=== PATIENT | male | born 1985 | race Caucasian/White ===

== ENCOUNTER 2016-03-07 11:15 | Inpatient (IN) | payer MEDICAID ==
[~2016-03-07] VITALS: Ht 175.3 cm; Wt 56.7 kg
[~2016-03-07 11:15] MED LIST: CREON (PANCRELI1 CAP PO; FLUTICASONE PRO16 GM NASAL; MULTIPLE VITAMI1 TA1 PO; PROAIR HFA8.5 GM INH; PULMOZYME1 MG/ML INH; ZANTAC150 MG PO; [UNRECOGNIZED DRUG - OTHER] INH
[2016-03-07 12:53] LABS: BASOPHILS 0.1 % (0.0-2.0); EOSINOPHILS 0.1 % (0-7); HEMATOCRIT 42.1 % (42.0-54.0); HEMOGLOBIN 14.3 g/dL (13.5-17.5); IMMATURE GRANULOCYTES 0.3 % (0-5); LYMPHOCYTES 4.9 % (15-50); MCH 28.2 pg (26.0-34.0); MEAN PLATELET VOLUME 8.8 fL (7.4-10.4); MONOCYTES 9.5 % (2-11); NEUTROPHILS 85.1 % (40-80); RBC 5.07 10x6/uL (4.20-6.10); RDW 13.6 % (11.5-14.5); WBC 14.9 10x3/uL (4.8-10.8)
[2016-03-07 13:16] LABS: CALC OSMOLALITY 266 mosm/kg (275-300); CALCIUM 9.3 mg/dL (8.5-10.1); CARBON DIOXIDE 25.9 mmol/L (21.0-32.0); CHLORIDE - SERUM 98 mmol/L (98-107); GLUCOSE 97 mg/dL (74-106); POTASSIUM - SERUM 4.3 mmol/L (3.5-5.1); SODIUM 134 mmol/L (136-145); UREA NITROGEN 9 mg/dL (7-18); eGFR NON AFRICAN AMERICAN > 90 mL/min (90-120)
[2016-03-07 13:19] LABS: APTT 35.7 SECONDS (22.8-39.4); INR 1.47 (0.85-1.17); PROTIME 17.7 SECONDS (11.6-15.0)
[2016-03-07 13:25] LABS: PLATELET COUNT 443 10x3/uL (130-400)
--- NOTE | 2016-03-07 15:50 | NUR ---
A 29 YEAR OLD ADMITTED TO ROOM 2227 VIA W/C AT PRESENT PLAN OF CARE GONE OVER WITH PT DEMONSTRATES UNDERSTANDING SL PATENT IN RT WRIST AT PRESENT DRY HACKING NON-PRODUCTIVE COUGH NOTED.
[2016-03-07 15:57] VITALS: BP 95/49
--- NOTE | 2016-03-07 16:00 | NUR ---
SLEEPING QUIETLY AT PRESENT DENIES ANY NEEDS AT PRESENT.
[2016-03-07 16:44] VITALS: BP 95/49; BMI 18.5
--- NOTE | 2016-03-07 18:13 | NUR ---
STATUS REMAINS UNCHGD AT PRESENT DENIES ANY NEEDS AT THIS TIME.
--- NOTE | 2016-03-07 18:14 | NUR ---
VS NEW ORDERS R/N AT PRESENT.
[2016-03-07 19:00] VITALS: BP 110/68
[2016-03-08] VITALS: BP 88/51
[2016-03-08 04:00] VITALS: BP 102/59
--- NOTE | 2016-03-08 04:12 | NUR ---
PT ADDMITTED WITH PNEUMONIA. SLEEPING AT THIS TIME. RESP EASY, UNLABORED. NO DISTRESS NOTED.
[2016-03-08 05:36] LABS: BASOPHILS 0.1 % (0.0-2.0); EOSINOPHILS 0.2 % (0-7); HEMATOCRIT 35.8 % (42.0-54.0); HEMOGLOBIN 12.1 g/dL (13.5-17.5); IMMATURE GRANULOCYTES 0.3 % (0-5); LYMPHOCYTES 6.8 % (15-50); MCH 27.8 pg (26.0-34.0); MCHC 33.8 g/dL (31.0-37.0); MCV 82.3 fL (80.0-100.0); MEAN PLATELET VOLUME 9.2 fL (7.4-10.4); MONOCYTES 12.4 % (2-11); NEUTROPHILS 80.2 % (40-80); PLATELET COUNT 434 10x3/uL (130-400); RBC 4.35 10x6/uL (4.20-6.10); RDW 13.8 % (11.5-14.5); WBC 15.3 10x3/uL (4.8-10.8)
[2016-03-08 06:17] LABS: ALKALINE PHOSPHATASE 119 U/L (46-116); ALT (SGPT) 21 U/L (10-68); CALC OSMOLALITY 272 mosm/kg (275-300); CARBON DIOXIDE 24.8 mmol/L (21.0-32.0); CHLORIDE - SERUM 102 mmol/L (98-107); GLUCOSE 106 mg/dL (74-106); MAGNESIUM - SERUM 1.6 mg/dL (1.8-2.4); PHOSPHOROUS 3.5 mg/dL (2.5-4.9); PRE-ALBUMIN 6.7 mg/dL (18.0-35.7); PROTEIN - SERUM 6.6 g/dL (6.4-8.2); SODIUM 137 mmol/L (136-145); UREA NITROGEN 11 mg/dL (7-18); eGFR NON AFRICAN AMERICAN > 90 mL/min (90-120)
--- NOTE | 2016-03-08 07:30 | NUR ---
AWAKE ALERT COLOR ADQ SKIN WARM AND DRY RESP EVEN AND UNLABORED AT PRESENT N/C RESP EVEN AND UNLABORED AT PRESENT.
[2016-03-08 07:41] VITALS: BP 99/51
--- NOTE | 2016-03-08 09:00 | NUR ---
QUIET IN ROOM AT PRESENT DENIES ANY NEEDS AT THIS TIME.
[2016-03-08 09:22] VITALS: Ht 175.3 cm; Wt 56.7 kg
--- NOTE | 2016-03-08 10:32 | NUR ---
PREMA NOTE: CM CALLED [facility] FOR TRANSFER OF PATIENT TODAY. DR. MURDOCK DOING DOC TO DOC AND PHONE NUMBER PROVIDED. PATIENT IS IN AGREEMENT TO THE TRANSFER.
--- NOTE | 2016-03-08 11:00 | NUR ---
LAYING QUIETLY WITH EYES CLOSED AT PRESENT N/C.
[2016-03-08 12:20] VITALS: BP 88/45
--- NOTE | 2016-03-08 12:53 | NUR ---
QUIET IN ROOM EATING LUNCH MARLENE WELL DENIES ANY NEEDS AT THIS TIME.
--- NOTE | 2016-03-08 15:27 | NUR ---
QUIET IN ROOM AT PRESENT N/C AT PRESENT WATCHING TV QUIETLY AT PRESENT.
[2016-03-08 15:51] VITALS: BP 109/63
--- NOTE | 2016-03-08 16:43 | NUR ---
DC REASSESSMENT NOTE: PATIENT HAS BEEN ACCEPTED TO [facility] - WAITING ON BED.
--- NOTE | 2016-03-08 16:48 | NUR ---
Patient Name: PARRIS RUST Admission Status: ER Accout number: [id number] Admission Date: 03-07-2016 : 1985 Admission Diagnosis:PNEUMONIA, UNSPECIFIED ORGANISM Attending: ABIEL Current LOS: 1 Anticipated DC Date: Planned Disposition: [place] Insurance: [place] [employer] [facility] Discharge Planning Comments: CM SPOKE WITH PATIENT AND (SEAMUS) REGARDING TRANSFER TO [facility]. PATIENT IS INDEPENDENT WITH HIS CARE AT HOME AND HAS 3 STEPS W/RAILS TO ENTER HOME AND NO STAIRS INSIDE. PATIENT SEES A DOCTOR AT [place] BUT COULD NOT REMEMBER NAME. PATIENT USES [facility] ON [address].PATIENT HAS A NEBULIZER AT HOME. CM WILL CONTINUE TO FOLLOW PATIENT. PCP (SEES DOCTOR IN [place] - DOES NOT REMEMBER NAME) SEAMUS () [phone] [facility] [phone] Computer Systems Designer: Dee Santillan
--- NOTE | 2016-03-08 18:46 | NUR ---
TEMP 103.1 TYLENOL 650MG PO FOR TEMP UP.
--- NOTE | 2016-03-08 19:43 | NUR ---
CALLED ABOUT TEMP UP NO NEW ORDERS.
[2016-03-08] MEDS ORDERED: LEVOFLOXAC250 MG/50 IV (19:59)
[2016-03-08] MEDS ORDERED: LOVENOX40 MG/0.4 (19:59)
[2016-03-08] MEDS ORDERED: VANCOMYCIN 1 GM/1 G1 IV (19:59)
[2016-03-08] MEDS ORDERED: ZOSYN 4.5 GM/N4.5 G1 IV (19:59)
--- NOTE | 2016-03-08 20:18 | NUR ---
[facility] CALLED FOR TRANSFER. D/C PAPERWORK SIGNED.
--- NOTE | 2016-03-08 22:08 | NUR ---
[facility] CAME AND PICKED UP PATIENT FOR TRANSFER TO [facility]. PIV TO [facility].
--- NOTE | 2016-05-06 12:39 | DS ---
PATIENT:PARRIS RUST :[birth year] MEDICAL RECORD: [id number] DISCHARGE SUMMARY ADMISSION DATE: 03/07/16 DISCHARGE DATE: 03/08/16 ADMISSION DATE: 03/07/2016 DISCHARGE DATE: 03/08/2016 DISCHARGE DIAGNOSES: 1. Left lower lobe pneumonia. 2. Pleurisy. 3. Fever. 4. Cough. 5. History of cystic fibrosis. 6. Chronic bradycardia. CONSULTS: Dr. Blake. IMAGING STUDIES: Chest x-ray findings consistent with multifocal pneumonia as well as some bronchitis. HOSPITAL COURSE: The full H&P is listed elsewhere on the chart for this 30-year-old male patient admitted with cough, sinusitis and shortness of breath. The patient is post-influenza treated with Tamiflu. He had a community-acquired multilobe pneumonia, right upper, right lower and left lower lobe infiltrates on chest x-ray with a history of cystic fibrosis. He was started on antibiotic therapy with vancomycin and Zosyn. Blood cultures were obtained. They were negative to date. He was started on DuoNeb updrafts. His sinusitis was treated. He was put on DVT and GI prophylaxis. The patient did receive antibiotic therapy and aggressive pulmonary toilet. He was transferred to [facility], which is where he normally goes for care of his CF. See med rec. TRANSINT:[id number] Voice Confirmation ID: [id number] DOCUMENT ID: [id number] Dictated By: IBRAHIMA ALANIS I have interviewed/examined the above patient and agree with these documented findings. KENDALL PERES MD at 0843 at 1238 CC: [id number] DICTATION DATE: 05/01/16 0848 IT TRAINING SPECIALIST: 05/01/16 2302 DIS IN 03/08/16 [facility] [address] [place] [address]
== END 2016-03-08 22:10 | disposition short-term general hospital (02) | DRG 178 ==
LOC: D.ER 11:15 → D.MS 14:52
PROVIDERS: Emergency Medicine Emergency Medical Services; Internal Medicine Pulmonary Disease; ADMIT Family Medicine Adult Medicine
DX: J15.1 Pneumonia due to Pseudomonas (principal); E84.9 Cystic fibrosis, unspecified; Z68.1 Body mass index [BMI] 19.9 or less, adult; J15.212 Pneumonia due to Methicillin resistant Staphylococcus aureus; J98.01 Acute bronchospasm; J32.9 Chronic sinusitis, unspecified; R63.4 Abnormal weight loss; K21.9 Gastro-esophageal reflux disease without esophagitis; E83.42 Hypomagnesemia; R00.0 Tachycardia, unspecified

== ENCOUNTER 2017-05-08 15:45 | Emergency (ER) | payer MEDICAID ==
[2016-03-08 09:22] VITALS: BMI 18.4
[~2017-05-08 15:45] MED LIST changes: +LEVOFLOXAC250 MG/50 IV; +LOVENOX40 MG/0.4; +VANCOMYCIN 1 GM/1 G1 IV; +ZOSYN 4.5 GM/N4.5 G1 IV
[2017-05-08 16:44] LABS: BASOPHILS 0.2 % (0-2); HEMATOCRIT 38.3 % (42.0-54.0); HEMOGLOBIN 12.4 g/dL (13.5-17.5); IMMATURE GRANULOCYTES 0.2 % (0-5); LYMPHOCYTES 15.5 % (15-50); MCH 27.9 pg (26.0-34.0); MCHC 32.4 g/dL (31.0-37.0); MCV 86.1 fL (80.0-100.0); MEAN PLATELET VOLUME 8.6 fL (7.4-10.4); MONOCYTES 12.2 % (2-11); NEUTROPHILS 66.9 % (40-80); RBC 4.45 10x6/uL (4.20-6.10); RDW 13.5 % (11.5-14.5)
[2017-05-08 17:04] LABS: ALBUMIN 2.8 g/dL (3.4-5.0); ALKALINE PHOSPHATASE 116 U/L (46-116); ALT (SGPT) 30 U/L (10-68); CALC OSMOLALITY 282 mosm/kg (275-300); CALCIUM 8.7 mg/dL (8.5-10.1); CARBON DIOXIDE 26.2 mmol/L (21.0-32.0); CHLORIDE - SERUM 108 mmol/L (98-107); GLUCOSE 112 mg/dL (74-106); POTASSIUM - SERUM 4.5 mmol/L (3.5-5.1); PROTEIN - SERUM 6.6 g/dL (6.4-8.2); SODIUM 142 mmol/L (136-145); UREA NITROGEN 9 mg/dL (7-18); eGFR NON AFRICAN AMERICAN > 90 mL/min (90-120)
[2017-05-08 17:12] LABS: TROPONIN-I < 0.017 ng/mL (0.000-0.060)
[2017-05-08 17:16] LABS: PLATELET COUNT 302 10x3/uL (130-400)
== END 2017-05-08 20:03 | disposition home or self-care (01) ==
LOC: D.ER 15:45
PROVIDERS: Emergency Medicine
DX: R55 Syncope and collapse (principal); E84.9 Cystic fibrosis, unspecified

== ENCOUNTER 2017-08-20 22:31 | Emergency (ER) | payer MEDICAID ==
[~2017-08-20] VITALS: Ht 175.3 cm; Wt 61.8 kg
[2017-08-20 22:51] VITALS: Ht 175.3 cm; Wt 61.8 kg
[2017-08-20] MEDS ORDERED: VIBRAMYCIN50 MG (22:54)
[2017-08-20 23:56] LABS: BASOPHILS 0.1 % (0-2); EOSINOPHILS 4.7 % (0-7); HEMOGLOBIN 13.5 g/dL (13.5-17.5); IMMATURE GRANULOCYTES 0.1 % (0-5); LYMPHOCYTES 15.1 % (15-50); MCH 27.9 pg (26.0-34.0); MCHC 33.8 g/dL (31.0-37.0); MCV 82.6 fL (80.0-100.0); MEAN PLATELET VOLUME 8.2 fL (7.4-10.4); MONOCYTES 17.1 % (2-11); NEUTROPHILS 62.9 % (40-80); PLATELET COUNT 310 10x3/uL (130-400); RBC 4.84 10x6/uL (4.20-6.10); RDW 14.4 % (11.5-14.5); WBC 7.3 10x3/uL (4.8-10.8)
[2017-08-21 00:15] LABS: ALKALINE PHOSPHATASE 128 U/L (46-116); ALT (SGPT) 34 U/L (10-68); BILIRUBIN - TOTAL 0.23 mg/dL (0.2-1.3); CALC OSMOLALITY 273 mosm/kg (275-300); CARBON DIOXIDE 29.6 mmol/L (21.0-32.0); CHLORIDE - SERUM 101 mmol/L (98-107); CREATININE - SERUM 0.9 mg/dL (0.6-1.3); GLUCOSE 100 mg/dL (74-106); POTASSIUM - SERUM 4.5 mmol/L (3.5-5.1); PROTEIN - SERUM 7.6 g/dL (6.4-8.2); SODIUM 137 mmol/L (136-145); UREA NITROGEN 12 mg/dL (7-18); eGFR NON AFRICAN AMERICAN > 90 mL/min (90-120)
[2017-08-21 00:41] LABS: APPEARANCE CLEAR (CLEAR); BILIRUBIN NEGATIVE (NEGATIVE); COLOR STRAW (YELLOW); GLUCOSE NEGATIVE (NEGATIVE); KETONE NEGATIVE (NEGATIVE); NITRITE NEGATIVE (NEGATIVE); PROTEIN NEGATIVE (NEGATIVE); UROBILINOGEN NORMAL (NORMAL)
[2017-08-21 02:11] VITALS: BP 103/62
== END 2017-08-21 02:12 | disposition home or self-care (01) ==
LOC: D.ER 22:31
PROVIDERS: Family Medicine
DX: L72.9 Follicular cyst of the skin and subcutaneous tissue, unspecified (principal)

== ENCOUNTER → 2017-12-21 11:47 | Outpatient (CLI) | payer MEDICAID ==
[2017-08-20 22:51] VITALS: BMI 20.1
[~2017-12-21 11:47] MED LIST changes: +VIBRAMYCIN50 MG
[2017-12-21 12:33] LABS: VANCOMYCIN - TROUGH 11.2 ug/mL (10.0-20.0)
== END | disposition home or self-care (01) ==
LOC: D.LABREF 11:47
DX: E84.0 Cystic fibrosis with pulmonary manifestations (principal)

== ENCOUNTER → 2018-01-01 13:58 | Outpatient (CLI) | payer MEDICAID ==
[2017-08-20 22:51] VITALS: BMI 20.1
[2018-01-01 15:44] LABS: BASOPHILS 0.2 % (0-2); EOSINOPHILS 9.5 % (0-7); HEMATOCRIT 41.2 % (42.0-54.0); HEMOGLOBIN 13.8 g/dL (13.5-17.5); IMMATURE GRANULOCYTES 0.2 % (0-5); LYMPHOCYTES 24.7 % (15-50); MCH 28.3 pg (26.0-34.0); MCHC 33.5 g/dL (31.0-37.0); MCV 84.6 fL (80.0-100.0); MEAN PLATELET VOLUME 9.9 fL (7.4-10.4); MONOCYTES 18.7 % (2-11); NEUTROPHILS 46.7 % (40-80); PLATELET COUNT 325 10x3/uL (130-400); RBC 4.87 10x6/uL (4.20-6.10); RDW 14.2 % (11.5-14.5)
[2018-01-01 15:55] LABS: CALC OSMOLALITY 275 mosm/kg (275-300); CALCIUM 8.4 mg/dL (8.5-10.1); CHLORIDE - SERUM 103 mmol/L (98-107); CREATININE - SERUM 0.9 mg/dL (0.6-1.3); GLUCOSE 85 mg/dL (74-106); SODIUM 139 mmol/L (136-145); UREA NITROGEN 9 mg/dL (7-18); eGFR NON AFRICAN AMERICAN > 90 mL/min (90-120)
== END | disposition home or self-care (01) ==
LOC: D.LABREF 13:58
DX: E84.0 Cystic fibrosis with pulmonary manifestations (principal)

== ENCOUNTER 2018-03-07 15:09 | Emergency (ER) | payer MEDICAID ==
[~2018-03-07] VITALS: Ht 175.3 cm; Wt 63.6 kg
[2018-03-07 15:42] VITALS: Ht 175.3 cm; Wt 63.6 kg
[2018-03-07 16:29] LABS: BASOPHILS 0.1 % (0-2); EOSINOPHILS 2.6 % (0-7); HEMATOCRIT 41.7 % (42.0-54.0); HEMOGLOBIN 14.2 g/dL (13.5-17.5); IMMATURE GRANULOCYTES 0.2 % (0-5); LYMPHOCYTES 6.7 % (15-50); MCH 28.4 pg (26.0-34.0); MCHC 34.1 g/dL (31.0-37.0); MCV 83.4 fL (80.0-100.0); MEAN PLATELET VOLUME 8.2 fL (7.4-10.4); MONOCYTES 8.8 % (2-11); NEUTROPHILS 81.6 % (40-80); PLATELET COUNT 356 10x3/uL (130-400); RDW 13.9 % (11.5-14.5); WBC 10.9 10x3/uL (4.8-10.8)
[2018-03-07 17:03] LABS: ALBUMIN 3.1 g/dL (3.4-5.0); CALC OSMOLALITY 276 mosm/kg (275-300); CALCIUM 8.7 mg/dL (8.5-10.1); CARBON DIOXIDE 27.2 mmol/L (21.0-32.0); CHLORIDE - SERUM 101 mmol/L (98-107); CREATININE - SERUM 1.1 mg/dL (0.6-1.3); GLUCOSE 80 mg/dL (74-106); POTASSIUM - SERUM 4.5 mmol/L (3.5-5.1); SODIUM 140 mmol/L (136-145); UREA NITROGEN 10 mg/dL (7-18); eGFR NON AFRICAN AMERICAN 82 mL/min (90-120)
[2018-03-07 17:17] LABS: ALKALINE PHOSPHATASE 180 U/L (46-116); ALT (SGPT) 31 U/L (10-68); BILIRUBIN - TOTAL 0.27 mg/dL (0.2-1.3); PROTEIN - SERUM 7.7 g/dL (6.4-8.2)
[2018-03-07] MEDS ORDERED: CIPRO500 MG PO (19:16)
[2018-03-07] MEDS ORDERED: DOXYCYCLINE HY100 M2 PO (19:16)
[2018-03-07] MEDS ORDERED: PROMETHAZINE W473 ML PO (19:16)
[2018-03-07 19:45] VITALS: BP 110/56
== END 2018-03-07 19:45 | disposition home or self-care (01) ==
LOC: D.ER 15:09
PROVIDERS: Family Medicine
DX: J06.9 Acute upper respiratory infection, unspecified (principal); R09.89 Other specified symptoms and signs involving the circulatory and respiratory systems; R51 Headache; M79.18 Myalgia, other site; E84.9 Cystic fibrosis, unspecified